=== PATIENT | male | born 1970 | race Asian ===

== ENCOUNTER → 2017-05-22 | Outpatient (CLI) | payer BC ==
[~2017-05-22] MED LIST: BACTRIM DS 8001 TAB PO; NORCO 325 MG-51 TAB PO
== END ==
LOC: COL.RAD 08:14
DX: R16.0 Hepatomegaly, not elsewhere classified (principal); K76.0 Fatty (change of) liver, not elsewhere classified; R74.0 Nonspecific elevation of levels of transaminase and lactic acid dehydrogenase [LDH]

== ENCOUNTER → 2017-06-03 | Outpatient (CLI) | payer BC | LOC: COL.RAD 09:45 | DX: K76.0 Fatty (change of) liver, not elsewhere classified (principal) ==

== ENCOUNTER → 2017-06-20 | Outpatient (CLI) | payer BC | LOC: COL.RAD 07:30 | DX: R10.9 Unspecified abdominal pain (principal); Z87.11 Personal history of peptic ulcer disease; B19.20 Unspecified viral hepatitis C without hepatic coma; K92.1 Melena | CPT/HCPCS: Q9967 ==

== ENCOUNTER → 2017-06-27 | Outpatient (CLI) | payer BC | LOC: COL.PUL 06-16 14:20 | DX: R06.02 Shortness of breath (principal); K76.0 Fatty (change of) liver, not elsewhere classified; Z87.891 Personal history of nicotine dependence | CPT/HCPCS: J2805 ==

== ENCOUNTER → 2017-07-28 | Outpatient (CLI) | payer BC ==
[~2017-07-28] MED LIST changes: +ADVIL200 MG PO; +ALKA-SELTZER HE1 TEF PO; +BENTYL 10MG10 MG/CAP PO; +TYLENOL 325MG325 MG PO
== END ==
LOC: SUN.DIA 10:31
DX: E11.40 Type 2 diabetes mellitus with diabetic neuropathy, unspecified (principal); Z68.27 Body mass index [BMI] 27.0-27.9, adult; Z71.3 Dietary counseling and surveillance; F17.210 Nicotine dependence, cigarettes, uncomplicated
CPT/HCPCS: A9537; G0108

== ENCOUNTER 2017-07-29 11:47 | Day surgery (SDC) | payer BC ==
[~2017-07-29] VITALS: Ht 180.3 cm; Wt 86.6 kg
[~2017-07-29 11:47] MED LIST changes: -ADVIL200 MG PO; -ALKA-SELTZER HE1 TEF PO; -BENTYL 10MG10 MG/CAP PO; -TYLENOL 325MG325 MG PO
[2017-07-29 12:03] VITALS: BP 119/82; PULSE 95; TEMP 98.2
[2017-07-29] MEDS ORDERED: ADVIL200 MG PO (12:49)
[2017-07-29] MEDS ORDERED: TYLENOL 325MG325 MG PO (12:49)
[2017-07-29] MEDS ORDERED: ALKA-SELTZER HE1 TEF PO (12:50)
[2017-07-29] MEDS ORDERED: BENTYL 10MG10 MG/CAP PO (13:48)
[2017-07-29 13:55] VITALS: BP 144/100; PULSE 97; TEMP 98.8
[2017-07-29 14:15] VITALS: BP 128/88; PULSE 92
[2017-07-29 14:50] VITALS: BP 124/91; PULSE 91
[2017-07-29 15:00] VITALS: BP 119/89
[2017-07-29 16:16] VITALS: BP 130/89; PULSE 92
== END 2017-07-29 15:15 | disposition home or self-care (01) ==
LOC: SDCO 11:47
DX: D12.2 Benign neoplasm of ascending colon (principal); D12.3 Benign neoplasm of transverse colon; K29.80 Duodenitis without bleeding; K57.30 Diverticulosis of large intestine without perforation or abscess without bleeding; K64.0 First degree hemorrhoids; K29.30 Chronic superficial gastritis without bleeding; Z80.0 Family history of malignant neoplasm of digestive organs; E11.9 Type 2 diabetes mellitus without complications; Z88.0 Allergy status to penicillin; B18.2 Chronic viral hepatitis C; K76.0 Fatty (change of) liver, not elsewhere classified; F41.9 Anxiety disorder, unspecified; F32.9 Major depressive disorder, single episode, unspecified
CPT/HCPCS: J2250; J3010; J7030

== ENCOUNTER 2018-02-13 00:59 | Emergency (ER) | payer BC ==
[~2018-02-13] VITALS: Ht 182.9 cm; Wt 84.1 kg
[~2018-02-13 00:59] MED LIST changes: +ADVIL200 MG PO; +ALKA-SELTZER HE1 TEF PO; +BENTYL 10MG10 MG/CAP PO; +TYLENOL 325MG325 MG PO
[2018-02-13 01:02] VITALS: BP 169/94; TEMP 98
[2018-02-13] MEDS ORDERED: EPCLUSA 400 MG1 EACH PO (01:50)
[2018-02-13 01:52] LABS: BASO % 0.5 % (0.0-2.0); EOS # 0.1 (0.0-0.7); EOS % 1.3 % (0-4.0); GRAN # 3.9 (1.4-6.5); GRAN % 47.7 % (42.2-75.2); LYMPH # 3.2 (1.2-3.4); LYMPH % 38.8 % (20.0-51.0); MEAN CELL VOLUME 97 fl (80.0-100.0); MEAN CORPUSCULAR HEMOGLOBIN 34 pg (27.0-31.0); MEAN CORPUSCULAR HGB CONC 35 g/dl (33.0-37.0); MEAN PLATELET VOLUME 9.8 fl (7.4-10.4); MONO # 0.9 (0.1-0.6); MONO % 11.2 % (1.7-9.3); PLATELET COUNT 207 K/mm3 (130-400); RED BLOOD COUNT 4.42 M/mm3 (4.20-5.60); REDCELL DISTRIBUTION WIDTH-CV 11.8 % (11.5-14.5)
[2018-02-13 02:05] LABS: ALBUMIN 4.5 gm/dL (3.5-5.0); BILIRUBIN,TOTAL 0.4 mg/dL (0.0-1.0); CALCIUM 8.8 mg/dL (8.4-10.2); CREATININE, serum 0.86 mg/dL (0.66-1.25); POTASSIUM 4.1 mmol/L (3.4-5.0); TOTAL PROTEIN 8.5 gm/dL (6.4-8.2)
[2018-02-13 02:13] LABS: ERYTHROCYTE SEDIMENTATION RATE 18 mm/hr (0-15)
[2018-02-13 02:19] LABS: C-REACTIVE PROTEIN 0.7 mg/dL (0.0-0.9)
[2018-02-13] MEDS ORDERED: CEPHALEXIN500 M1 PO (02:35)
[2018-02-13] MEDS ORDERED: PERCOCET 325 MG1 TA2 PO (02:35)
[2018-02-13 02:55] VITALS: PULSE 89
== END 2018-02-13 02:59 | disposition home or self-care (01) ==
LOC: COL.ER 00:59
PROVIDERS: Emergency Medicine
DX: M79.672 Pain in left foot (principal); G89.18 Other acute postprocedural pain; E11.9 Type 2 diabetes mellitus without complications; I10 Essential (primary) hypertension; J44.9 Chronic obstructive pulmonary disease, unspecified; K21.9 Gastro-esophageal reflux disease without esophagitis; F17.210 Nicotine dependence, cigarettes, uncomplicated
CPT/HCPCS: J1170; J1885; J2405; J7030

== ENCOUNTER 2018-03-02 07:04 | Emergency (ER) | payer BC ==
[~2018-03-02] VITALS: Ht 180.3 cm; Wt 85.9 kg
[~2018-03-02 07:04] MED LIST changes: +CEPHALEXIN500 M1 PO; +EPCLUSA 400 MG1 EACH PO; +PERCOCET 325 MG1 TA2 PO
[2018-03-02 07:09] VITALS: TEMP 97.9
[2018-03-02 07:38] LABS: BASO % 0.4 % (0.0-2.0); EOS # 0.1 (0.0-0.7); EOS % 1.4 % (0-4.0); GRAN # 5.9 (1.4-6.5); GRAN % 62.3 % (42.2-75.2); HEMATOCRIT 45.7 % (42.0-52.0); HEMOGLOBIN 15.7 g/dl (13.5-18.0); LYMPH # 2.4 (1.2-3.4); LYMPH % 25.2 % (20.0-51.0); MEAN CELL VOLUME 98 fl (80.0-100.0); MEAN CORPUSCULAR HEMOGLOBIN 34 pg (27.0-31.0); MEAN CORPUSCULAR HGB CONC 34 g/dl (33.0-37.0); MEAN PLATELET VOLUME 9.8 fl (7.4-10.4); MONO % 10.4 % (1.7-9.3); PLATELET COUNT 228 K/mm3 (130-400); RED BLOOD COUNT 4.67 M/mm3 (4.20-5.60)
[2018-03-02 07:54] LABS: ALBUMIN 4.3 gm/dL (3.5-5.0); BILIRUBIN,TOTAL 0.5 mg/dL (0.0-1.0); C-REACTIVE PROTEIN 0.6 mg/dL (0.0-0.9); CALCIUM 9.4 mg/dL (8.4-10.2); CREATININE, serum 0.92 mg/dL (0.66-1.25); TOTAL PROTEIN 8.5 gm/dL (6.4-8.2)
[2018-03-02 07:59] LABS: ERYTHROCYTE SEDIMENTATION RATE 26 mm/hr (0-15)
[2018-03-02] MEDS ORDERED: ULTRAM 50MG TAB50 MG PO (08:12)
[2018-03-02] MEDS ORDERED: CLEOCIN HCL300 MG PO (08:12)
[2018-03-02 11:20] VITALS: BP 129/79; PULSE 96
== END 2018-03-02 11:20 | disposition short-term general hospital (02) ==
LOC: COL.ER 07:04
PROVIDERS: Emergency Medicine
DX: S91.302A Unspecified open wound, left foot, initial encounter (principal); L08.9 Local infection of the skin and subcutaneous tissue, unspecified; I10 Essential (primary) hypertension; E11.9 Type 2 diabetes mellitus without complications; F17.210 Nicotine dependence, cigarettes, uncomplicated; Z86.19 Personal history of other infectious and parasitic diseases

== ENCOUNTER 2018-04-01 19:09 | Emergency (ER) | payer BC ==
[~2018-04-01] VITALS: Ht 177.8 cm; Wt 84.1 kg
[~2018-04-01 19:09] MED LIST changes: +CLEOCIN HCL300 MG PO; +ULTRAM 50MG TAB50 MG PO
[2018-04-01 19:15] VITALS: TEMP 97
[2018-04-01 20:34] VITALS: BP 133/106; PULSE 109
== END 2018-04-01 20:40 | disposition home or self-care (01) ==
LOC: COL.ER 19:09
DX: E11.621 Type 2 diabetes mellitus with foot ulcer (principal); F17.210 Nicotine dependence, cigarettes, uncomplicated; Z98.890 Other specified postprocedural states

== ENCOUNTER 2018-04-13 16:38 | Emergency (ER) | payer BC ==
[~2018-04-13] VITALS: Ht 180.3 cm; Wt 86.4 kg
[2018-04-13 16:45] VITALS: BP 126/94; PULSE 104; TEMP 98.5
[2018-04-13] MEDS ORDERED: PERCOCET 325 MG1 TAB PO (17:47)
[2018-04-13] MEDS ORDERED: PERCOCET 325 MG1 TA2 PO (18:07)
== END 2018-04-13 18:15 | disposition home or self-care (01) ==
LOC: COL.ER 16:38
DX: S91.302D Unspecified open wound, left foot, subsequent encounter (principal); G89.18 Other acute postprocedural pain; M79.672 Pain in left foot; E11.9 Type 2 diabetes mellitus without complications; J45.909 Unspecified asthma, uncomplicated; J43.9 Emphysema, unspecified; F17.210 Nicotine dependence, cigarettes, uncomplicated; Z76.0 Encounter for issue of repeat prescription; Z88.0 Allergy status to penicillin

== ENCOUNTER 2018-07-21 17:33 | Emergency (ER) | payer SELFPAY ==
[~2018-07-21] VITALS: Ht 180.3 cm; Wt 82.3 kg
[~2018-07-21 17:33] MED LIST changes: +PERCOCET 325 MG1 TAB PO
[2018-07-21 17:56] VITALS: TEMP 98.7
[2018-07-21 19:19] LABS: BASO % 0.4 % (0.0-2.0); EOS # 0.1 (0.0-0.7); EOS % 1.7 % (0-4.0); GRAN # 4.6 (1.4-6.5); GRAN % 54.8 % (42.2-75.2); HEMATOCRIT 45.4 % (42.0-52.0); HEMOGLOBIN 15.7 g/dl (13.5-18.0); LYMPH # 2.9 (1.2-3.4); LYMPH % 34.7 % (20.0-51.0); MEAN CELL VOLUME 96 fl (80.0-100.0); MEAN CORPUSCULAR HEMOGLOBIN 33 pg (27.0-31.0); MEAN CORPUSCULAR HGB CONC 35 g/dl (33.0-37.0); MEAN PLATELET VOLUME 10.1 fl (7.4-10.4); MONO # 0.7 (0.1-0.6); MONO % 7.8 % (1.7-9.3); PLATELET COUNT 187 K/mm3 (130-400); RED BLOOD COUNT 4.75 M/mm3 (4.20-5.60); REDCELL DISTRIBUTION WIDTH-CV 12.7 % (11.5-14.5)
[2018-07-21 19:38] LABS: ALBUMIN 4.5 gm/dL (3.5-5.0); BILIRUBIN,TOTAL 0.6 mg/dL (0.0-1.0); C-REACTIVE PROTEIN 0.7 mg/dL (0.0-0.9); CALCIUM 9.2 mg/dL (8.4-10.2); CREATININE, serum 0.82 (0.66-1.25); POTASSIUM 4.3 mmol/L (3.4-5.0); TOTAL PROTEIN 8.9 gm/dL (6.4-8.2)
[2018-07-21] MEDS ORDERED: DOXYCYCLINE 10100 MG PO (20:19)
[2018-07-21 20:47] VITALS: BP 134/96; PULSE 85
== END 2018-07-21 20:57 | disposition home or self-care (01) ==
LOC: COL.ER 17:33
PROVIDERS: Nurse Practitioner
DX: M79.672 Pain in left foot (principal); R60.0 Localized edema; E11.9 Type 2 diabetes mellitus without complications; I10 Essential (primary) hypertension; J44.9 Chronic obstructive pulmonary disease, unspecified; F17.210 Nicotine dependence, cigarettes, uncomplicated; Z79.84 Long term (current) use of oral hypoglycemic drugs; Z79.899 Other long term (current) drug therapy; Z88.0 Allergy status to penicillin
CPT/HCPCS: J1170

== ENCOUNTER → 2018-09-09 | Outpatient (CLI) | payer OTHER ==
[~2018-09-09] MED LIST changes: +DOXYCYCLINE 10100 MG PO
== END ==
LOC: COL.PUL 11:26
DX: Z02.71 Encounter for disability determination (principal); F17.210 Nicotine dependence, cigarettes, uncomplicated

== ENCOUNTER → 2019-01-07 | Outpatient (CLI) | payer OTHER | LOC: COL.RAD 13:34 | DX: M72.2 Plantar fascial fibromatosis (principal); Z98.890 Other specified postprocedural states ==

== ENCOUNTER 2019-04-11 11:00 | Emergency (ER) | payer MEDICAID | END 2019-04-11 12:20 | disposition home or self-care (01) | LOC: COL.ER 11:00 | DX: Z72.9 Problem related to lifestyle, unspecified (principal) ==

== ENCOUNTER 2020-05-24 17:06 | Emergency (ER) | payer MEDICAID ==
[~2020-05-24] VITALS: Ht 180.3 cm; Wt 81.8 kg
[2020-05-24 17:13] VITALS: TEMP 98.3
[2020-05-24 18:07] LABS: BASO # 0.1 (0.0-0.2); BASO % 0.5 % (0.0-2.0); EOS % 0.2 % (0-4.0); GRAN # 7.4 (1.4-6.5); GRAN % 69.5 % (42.2-75.2); HEMATOCRIT 44.5 % (42.0-52.0); HEMOGLOBIN 15.8 g/dl (13.5-18.0); LYMPH # 1.6 (1.2-3.4); LYMPH % 15.3 % (20.0-51.0); MEAN CELL VOLUME 97 fl (80.0-100.0); MEAN CORPUSCULAR HEMOGLOBIN 34 pg (27.0-31.0); MEAN CORPUSCULAR HGB CONC 36 g/dl (33.0-37.0); MEAN PLATELET VOLUME 10.2 fl (7.4-10.4); MONO # 1.5 (0.1-0.6); MONO % 14.1 % (1.7-9.3); PLATELET COUNT 150 K/mm3 (130-400); REDCELL DISTRIBUTION WIDTH-CV 12.2 % (11.5-14.5)
[2020-05-24 18:14] LABS: ALANINE AMINOTRANSFERASE 68 U/L (4-49); ALBUMIN 4.5 gm/dL (3.5-5.0); ALKALINE PHOSPHATASE 71 U/L (50-136); AMYLASE 150 U/L (30-110); ANION GAP 14 mmol/L (7-16); AST,SGOT 62 U/L (15-37); BILIRUBIN,TOTAL 0.6 mg/dL (0.0-1.0); BLOOD UREA NITROGEN 10 mg/dL (9-20); CALCIUM 9.3 mg/dL (8.4-10.2); CARBON DIOXIDE 23 mmol/L (22-30); CHLORIDE 102 mmol/L (98-107); CREATININE, serum 1.03 (0.66-1.25); GLUCOSE 196 mg/dL (74-106); LIPASE 413 U/L (23-300); POTASSIUM 3.7 mmol/L (3.4-5.0); SODIUM 139 mmol/L (137-145); TOTAL PROTEIN 8.3 gm/dL (6.4-8.2)
[2020-05-24 18:30] LABS: TROPONIN-I < 0.012 ng/mL (0.000-0.035)
[2020-05-24] MEDS ORDERED: ZITHROMAX Z PA250 MG PO (19:46)
[2020-05-24] MEDS ORDERED: PROVENTIL0.09 MG/A1 IH (19:46)
[2020-05-24] MEDS ORDERED: PREDNISONE20 MG PO (19:46)
[2020-05-24 19:55] VITALS: BP 112/85; PULSE 87
== END 2020-05-24 19:55 | disposition left against medical advice (07) ==
LOC: COL.ER 17:06
PROVIDERS: Nurse Practitioner Family
DX: R06.02 Shortness of breath (principal); R05 Cough; E11.9 Type 2 diabetes mellitus without complications; I10 Essential (primary) hypertension; J44.9 Chronic obstructive pulmonary disease, unspecified; F17.210 Nicotine dependence, cigarettes, uncomplicated; Z88.0 Allergy status to penicillin
CPT/HCPCS: J1885; J7030

== ENCOUNTER 2020-06-13 15:22 | Emergency (ER) | payer MEDICAID ==
[~2020-06-13 15:22] MED LIST changes: +PREDNISONE20 MG PO; +PROVENTIL0.09 MG/A1 IH; +ZITHROMAX Z PA250 MG PO
[2020-06-13 15:37] VITALS: TEMP 98.8
[2020-06-13 16:12] LABS: BASO # 0.1 (0.0-0.2); BASO % 0.6 % (0.0-2.0); EOS # 0.2 (0.0-0.7); GRAN # 4.6 (1.4-6.5); GRAN % 56.8 % (42.2-75.2); HEMATOCRIT 46.2 % (42.0-52.0); HEMOGLOBIN 16.3 g/dl (13.5-18.0); LYMPH # 2.5 (1.2-3.4); LYMPH % 31.3 % (20.0-51.0); MEAN CELL VOLUME 99 fl (80.0-100.0); MEAN CORPUSCULAR HEMOGLOBIN 35 pg (27.0-31.0); MEAN CORPUSCULAR HGB CONC 35 g/dl (33.0-37.0); MEAN PLATELET VOLUME 9.9 fl (7.4-10.4); MONO # 0.7 (0.1-0.6); MONO % 8.8 % (1.7-9.3); PLATELET COUNT 253 K/mm3 (130-400); RED BLOOD COUNT 4.68 M/mm3 (4.20-5.60); REDCELL DISTRIBUTION WIDTH-CV 11.8 % (11.5-14.5)
[2020-06-13 16:26] LABS: ALANINE AMINOTRANSFERASE 35 U/L (4-49); ALBUMIN 4.6 gm/dL (3.5-5.0); ALKALINE PHOSPHATASE 75 U/L (50-136); ANION GAP 14 mmol/L (7-16); AST,SGOT 39 U/L (15-37); BILIRUBIN,TOTAL 0.5 mg/dL (0.0-1.0); BLOOD UREA NITROGEN 8 mg/dL (9-20); CALCIUM 9.4 mg/dL (8.4-10.2); CARBON DIOXIDE 22 mmol/L (22-30); CHLORIDE 105 mmol/L (98-107); CREATININE, serum 0.91 (0.66-1.25); GLUCOSE 151 mg/dL (74-106); LIPASE 356 U/L (23-300); SODIUM 140 mmol/L (137-145); TOTAL PROTEIN 8.6 gm/dL (6.4-8.2)
[2020-06-13 16:33] LABS: C-REACTIVE PROTEIN < 0.5 mg/dL (0.0-0.9)
[2020-06-13 16:38] LABS: COLLECTION METHOD CLEAN CATCH
[2020-06-13 17:04] LABS: PH 6 (5-8); URINE APPEARANCE Clear; URINE BILIRUBIN Negative (NEGATIVE); URINE BLOOD Negative (NEGATIVE); URINE COLOR Straw; URINE GLUCOSE Negative (NEGATIVE); URINE KETONE Negative (NEGATIVE); URINE LEUKOCYTE ESTERASE Negative (NEGATIVE); URINE NITRATE Negative (NEGATIVE); URINE PROTEIN(semi-quant) Negative (NEGATIVE); URINE UROBILINOGEN Negative (NEGATIVE)
[2020-06-13 17:05] LABS: SQUAMOUS EPITHELIAL None Seen /hpf; URINE BACTERIA None Seen /hpf; URINE RBC None Seen /hpf
[2020-06-13] MEDS ORDERED: ZOFRAN ODT4 MG PO (17:48)
[2020-06-13 18:05] VITALS: BP 146/78; PULSE 75
== END 2020-06-13 18:05 | disposition home or self-care (01) ==
LOC: COL.ER 15:22
PROVIDERS: Family Medicine
DX: J20.9 Acute bronchitis, unspecified (principal); E86.0 Dehydration; E11.9 Type 2 diabetes mellitus without complications; J44.9 Chronic obstructive pulmonary disease, unspecified; I45.89 Other specified conduction disorders; F17.210 Nicotine dependence, cigarettes, uncomplicated; Z20.822 Contact with and (suspected) exposure to COVID-19; Z88.0 Allergy status to penicillin
CPT/HCPCS: J2405; J7030; J7120

== ENCOUNTER 2020-08-25 06:00 | Emergency (ER) | payer MEDICAID ==
[~2020-08-25] VITALS: Ht 180.3 cm; Wt 90.9 kg
[~2020-08-25 06:00] MED LIST changes: +ZOFRAN ODT4 MG PO
[2020-08-25 06:06] VITALS: TEMP 97.7
[2020-08-25 06:50] LABS: ALANINE AMINOTRANSFERASE 34 U/L (4-49); ALBUMIN 4.5 gm/dL (3.5-5.0); ALKALINE PHOSPHATASE 85 U/L (50-136); ANION GAP 12 mmol/L (7-16); AST,SGOT 40 U/L (15-37); BILIRUBIN,TOTAL 0.5 mg/dL (0.0-1.0); BLOOD UREA NITROGEN 13 mg/dL (9-20); CALCIUM 8.8 mg/dL (8.4-10.2); CARBON DIOXIDE 24 mmol/L (22-30); CHLORIDE 101 mmol/L (98-107); CREATINE KINASE 87 U/L (55-170); CREATININE, serum 0.83 (0.66-1.25); GLUCOSE 175 mg/dL (74-106); POTASSIUM 3.9 mmol/L (3.4-5.0); SODIUM 137 mmol/L (137-145)
[2020-08-25 07:01] LABS: BASO % 0.5 % (0.0-2.0); EOS # 0.1 (0.0-0.7); EOS % 0.8 % (0-4.0); GRAN # 3.8 (1.4-6.5); GRAN % 62.6 % (42.2-75.2); HEMATOCRIT 45.1 % (42.0-52.0); HEMOGLOBIN 15.6 g/dl (13.5-18.0); LYMPH # 1.6 (1.2-3.4); LYMPH % 25.7 % (20.0-51.0); MEAN CELL VOLUME 97 fl (80.0-100.0); MEAN CORPUSCULAR HEMOGLOBIN 34 pg (27.0-31.0); MEAN CORPUSCULAR HGB CONC 35 g/dl (33.0-37.0); MONO # 0.6 (0.1-0.6); MONO % 10.1 % (1.7-9.3); PLATELET COUNT 181 K/mm3 (130-400); RED BLOOD COUNT 4.66 M/mm3 (4.20-5.60); REDCELL DISTRIBUTION WIDTH-CV 12.2 % (11.5-14.5)
[2020-08-25 07:10] LABS: TROPONIN-I < 0.012 ng/mL (0.000-0.035)
[2020-08-25 08:52] LABS: TRICYCLIC ANTIDEPRESS URINE NEGATIVE
[2020-08-25] MEDS ORDERED: CEPHALEXIN500 M1 PO (10:13)
[2020-08-25] MEDS ORDERED: PROVENTIL0.09 MG/A1 IH (10:20)
[2020-08-25 10:47] VITALS: BP 131/81; PULSE 83
== END 2020-08-25 10:53 | disposition home or self-care (01) ==
LOC: COL.ER 06:00
PROVIDERS: Emergency Medicine
DX: L03.211 Cellulitis of face (principal); R06.02 Shortness of breath; R07.89 Other chest pain; J43.9 Emphysema, unspecified; E11.9 Type 2 diabetes mellitus without complications; Z20.822 Contact with and (suspected) exposure to COVID-19; Z88.0 Allergy status to penicillin; Z79.51 Long term (current) use of inhaled steroids
CPT/HCPCS: J0696; J7030

== ENCOUNTER 2020-08-29 11:25 | Emergency (ER) | payer MEDICAID ==
[~2020-08-29] VITALS: Ht 177.8 cm; Wt 72.7 kg
[2020-08-29 11:39] VITALS: TEMP 97.9
[2020-08-29] MEDS ORDERED: DOXYCYCLINE 10100 MG PO (12:17)
[2020-08-29 12:20] VITALS: BP 137/97; PULSE 101
== END 2020-08-29 12:20 | disposition home or self-care (01) ==
LOC: COL.ER 11:25
DX: F14.10 Cocaine abuse, uncomplicated (principal); E11.9 Type 2 diabetes mellitus without complications; F17.210 Nicotine dependence, cigarettes, uncomplicated; L03.113 Cellulitis of right upper limb; F10.10 Alcohol abuse, uncomplicated; J43.9 Emphysema, unspecified; Z88.0 Allergy status to penicillin

== ENCOUNTER 2020-11-17 22:24 | Emergency (ER) | payer MEDICAID | END 2020-11-17 23:10 | disposition left against medical advice (07) | LOC: COL.ER 22:24 | DX: R52 Pain, unspecified (principal) ==

== ENCOUNTER 2020-11-21 00:48 | Emergency (ER) | payer SELFPAY | END 2020-11-21 01:05 | disposition left against medical advice (07) | LOC: COL.ER 00:48 | DX: R69 Illness, unspecified (principal) ==

== ENCOUNTER 2020-11-30 22:06 | Observation (INO) | payer SELFPAY ==
[~2020-11-30] VITALS: Ht 177.8 cm; Wt 72.7 kg
[2020-11-30 23:27] LABS: BASO % 0.3 % (0.0-2.0); EOS % 0.3 % (0-4.0); GRAN # 8.6 (1.4-6.5); GRAN % 78.6 % (42.2-75.2); HEMATOCRIT 44.6 % (42.0-52.0); HEMOGLOBIN 15.2 g/dl (13.5-18.0); LYMPH # 1.5 (1.2-3.4); LYMPH % 13.8 % (20.0-51.0); MEAN CELL VOLUME 95 fl (80.0-100.0); MEAN CORPUSCULAR HEMOGLOBIN 32 pg (27.0-31.0); MEAN CORPUSCULAR HGB CONC 34 g/dl (33.0-37.0); MEAN PLATELET VOLUME 9.3 fl (7.4-10.4); MONO # 0.7 (0.1-0.6); MONO % 6.4 % (1.7-9.3); PLATELET COUNT 234 K/mm3 (130-400); REDCELL DISTRIBUTION WIDTH-CV 12.7 % (11.5-14.5)
[2020-11-30 23:38] LABS: TRICYCLIC ANTIDEPRESS URINE NEGATIVE
[2020-11-30 23:41] LABS: ALBUMIN 4.4 gm/dL (3.5-5.0); BILIRUBIN,TOTAL 0.2 mg/dL (0.0-1.0); CALCIUM 9.7 mg/dL (8.4-10.2); CREATININE, serum 0.75 (0.66-1.25); POTASSIUM 3.7 mmol/L (3.4-5.0); TOTAL PROTEIN 9.3 gm/dL (6.4-8.2)
[2020-11-30 23:54] LABS: TROPONIN-I 0.043 ng/mL (0.000-0.035)
[2020-12-01 05:16] VITALS: BP 160/87; PULSE 68; TEMP 99
--- NOTE | 2020-12-01 06:02 | NUR ---
PT ADMITTED ON FLOOR. PT STATES HE IS IN PAIN, LEFT SIDE OF FACE. PT DROWSY, ORIENTED. PT HAS NODULES ON LEFT FOOT AND STATES HE HAD MASSES REMOVED ON SOLE OF RIGHT FOOT. PT RESTING COMFORTABLY.
[2020-12-01 06:10] LABS: CHOLESTEROL RISK RATIO 3.2
[2020-12-01 06:45] LABS: TROPONIN-I 0.039 ng/mL (0.000-0.035)
--- NOTE | 2020-12-01 07:56 | NUR ---
Patient laying in bed awake, complaints of pain in left side face and right bottom foot. Request pain medication. Nurse informed the patient that there are no orders for pain medication and that will need to wait for the Doctor to round. VSS. IV CDI. fluids infusing. Telemetry on chest. Patient NPO pending consult with cardiology. Call light within reach
[2020-12-01 08:18] VITALS: BP 149/92; PULSE 74; TEMP 98.9
--- NOTE | 2020-12-01 08:30 | NUR ---
Dr Richards notified that the patient wants to leave the hospital.
--- NOTE | 2020-12-01 08:47 | NUR ---
sawmill production worker attended clinical rounds with patient. Patient is agitated and demands to leave AMA. Patient will discharge AMA. Patient is positive for cocaine and cannabinoids.
--- NOTE | 2020-12-01 08:53 | NUR ---
Nurse had the patient sign AMA paperwork and went over the risk of leaving against medical advice. Patient verbalized an understanding. IV removed, tip intact. Gauze and coban applied. Patient walked to the ER entrance independently. Personal belongings with the patient.
== END 2020-12-01 08:53 | disposition left against medical advice (07) ==
LOC: COL.ER 22:06 → MEDICAL 12-01 01:21
PROVIDERS: Physician Assistant; ADMIT Internal Medicine
DX: R77.8 Other specified abnormalities of plasma proteins (principal); R20.2 Paresthesia of skin; F14.10 Cocaine abuse, uncomplicated; F12.10 Cannabis abuse, uncomplicated; I10 Essential (primary) hypertension; E78.5 Hyperlipidemia, unspecified; E11.9 Type 2 diabetes mellitus without complications; J43.9 Emphysema, unspecified; Z79.899 Other long term (current) drug therapy; F17.210 Nicotine dependence, cigarettes, uncomplicated
CPT/HCPCS: G0378; J0780; J1885; J2270; J7030

== ENCOUNTER 2020-12-25 15:40 | Emergency (ER) | payer SELFPAY | END 2020-12-25 16:05 | disposition left against medical advice (07) | LOC: COL.ER 15:40 | DX: R69 Illness, unspecified (principal) ==

== ENCOUNTER 2021-01-11 14:00 | Emergency (ER) | payer SELFPAY ==
[~2021-01-11] VITALS: Ht 175.3 cm; Wt 86.4 kg
[2021-01-11 14:42] LABS: HEMATOCRIT 42.7 % (42.0-52.0); HEMOGLOBIN 14.4 g/dl (13.5-18.0); MEAN CELL VOLUME 98 fl (80.0-100.0); MEAN CORPUSCULAR HEMOGLOBIN 33 pg (27.0-31.0); MEAN CORPUSCULAR HGB CONC 34 g/dl (33.0-37.0); MEAN PLATELET VOLUME 10.2 fl (7.4-10.4); PLATELET COUNT 280 K/mm3 (130-400); RED BLOOD COUNT 4.34 M/mm3 (4.20-5.60); REDCELL DISTRIBUTION WIDTH-CV 13.2 % (11.5-14.5)
[2021-01-11 15:17] LABS: ARTERIAL BLD GAS O2 SATURATION 99.4 % (92-100); ARTERIAL BLD GAS TCO2 CT 18.9; ARTERIAL BLOOD GAS BASE EXCESS -5.6 (-2-2); ARTERIAL BLOOD GAS PCO2 29.9 mmHg (35-45)
[2021-01-11 15:18] LABS: ARTERIAL BLOOD GAS PO2 147.6 mmHg (80-100)
[2021-01-11 15:20] LABS: BAND 13 % (0-10); LYMPHOCYTE 7 % (20.0-51.0); METAMYELOCYTE 1 % (0-0); NEUTROPHILS 75 % (42.0-75.2); PLATELET ESTIMATE NORMAL (NORMAL)
[2021-01-11 15:34] LABS: COLLECTION METHOD RANDOM VOIDED
[2021-01-11 15:42] LABS: PH 6 (5-8); SQUAMOUS EPITHELIAL None Seen /hpf; URINE APPEARANCE Clear; URINE BACTERIA None Seen /hpf; URINE BILIRUBIN Negative (NEGATIVE); URINE BLOOD 1+ (NEGATIVE); URINE COLOR Straw; URINE GLUCOSE 3+ (NEGATIVE); URINE KETONE 1+ (NEGATIVE); URINE LEUKOCYTE ESTERASE Negative (NEGATIVE); URINE NITRATE Negative (NEGATIVE); URINE PROTEIN(semi-quant) 1+ (NEGATIVE); URINE RBC 0-2 /hpf; URINE UROBILINOGEN Negative (NEGATIVE); URINE WBC 0-2 /hpf
[2021-01-11 15:42] LABS: ALANINE AMINOTRANSFERASE 15 U/L (0-55); ALBUMIN 3.5 gm/dL (3.5-5.0); ALKALINE PHOSPHATASE 81 U/L (0-750); ANION GAP 16 mmol/L; AST,SGOT 25 U/L (5-34); BILIRUBIN,TOTAL 0.8 mg/dL (0.2-1.2); BLOOD UREA NITROGEN 13 mg/dL (9-21); CALCIUM 8.7 mg/dL (8.4-10.2); CARBON DIOXIDE 18 mEq/L (22-29); CHLORIDE 101 mmol/L (98-107); CREATININE, serum 1.07 mg/dL (0.72-1.25); GLUCOSE 331 mg/dL (70-99); POTASSIUM 3.6 mmol/L (3.5-4.5); SODIUM 135 mmol/L (136-145)
[2021-01-11 15:47] LABS: TROPONIN-I 0.013 ng/mL (0.00-0.033)
[2021-01-11 15:58] LABS: TRICYCLIC ANTIDEPRESS URINE NEGATIVE
--- NOTE | 2021-01-11 16:17 | NUR ---
Initial visit; Patient in Emergency Services, Return To Service Inspector offered comfort, prayer and stayed with his and daughter as long as time permitted. Return To Service Inspector gave the family her card and will be available to help them however she can.
[2021-01-11 17:06] VITALS: TEMP 103
[2021-01-11 18:30] VITALS: BP 104/61; PULSE 118
[2021-01-11 18:46] LABS: ALCOHOL(ethanol),MEDICAL < 10 mg/dL (0-10)
== END 2021-01-11 18:30 | disposition short-term general hospital (02) ==
LOC: COL.ER 14:00
PROVIDERS: Personal Emergency Response Attendant
DX: I61.8 Other nontraumatic intracerebral hemorrhage (principal); I60.9 Nontraumatic subarachnoid hemorrhage, unspecified
CPT/HCPCS: J0696; J1953; J2060; J2250; J2704; J3010; J7030; J7050; P9016